=== PATIENT | female | born 1985 | race African-American/Black ===

== ENCOUNTER 2017-12-21 10:24 | Emergency (ER) | payer OTHER, BC ==
[~2017-12-21] VITALS: Ht 167.6 cm; Wt 54.4 kg
[2017-12-21 10:52] LABS: URINE BILIRUBIN NEGATIVE (Negative); URINE BLOOD 3+ (Negative); URINE CLARITY CLEAR; URINE COLOR YELLOW; URINE GLUCOSE-RANDOM* NEGATIVE (Negative); URINE KETONES NEGATIVE (Negative); URINE LEUKOCYTES-REFLEX NEGATIVE (Negative); URINE NITRITE-REFLEX NEGATIVE (Negative); URINE PROTEIN (DIPSTICK) NEGATIVE (Negative); URINE SPECIFIC GRAVITY >= 1.030 (1.005-1.035)
[2017-12-21 11:14] LABS: SQUAMOUS 0-3 Few /LPF (0-3)
[2017-12-21 11:15] LABS: CASTS None Seen /LPF (None Seen); CRYSTALS None Seen /LPF (None Seen); URINE RBC >20 Many /HPF (0-2); URINE WBC-REFLEX 0-5 Rare /HPF (0-5)
[2017-12-21 11:16] LABS: BACTERIA-REFLEX 1-9 Few /HPF (None Seen)
[2017-12-21 11:19] LABS: HEMATOCRIT 37.7 % (37.0-47.0); HEMOGLOBIN 13.4 gm/dL (12.0-15.0); MCH 31.3 pg (26.0-34.0); MCHC 35.6 g/dL (28.0-37.0); MCV 87.8 fL (80.0-100.0); RBC 4.29 mil/uL (4.20-5.00); RDW 13.2 % (10.5-14.5); WBC 5.7 thou/uL (4.0-11.0)
[2017-12-21 11:29] VITALS: BP 108/69
[2017-12-24 21:11] LABS: NEISSERIA GONORRHEA-PCR Negative (Negative)
== END 2017-12-21 11:37 | disposition home or self-care (01) ==
LOC: ER 10:24
PROVIDERS: Physician Assistant
DX: N93.8 Other specified abnormal uterine and vaginal bleeding (principal); F17.210 Nicotine dependence, cigarettes, uncomplicated; Z88.1 Allergy status to other antibiotic agents